=== PATIENT | male | born 1965 | race Caucasian/White ===

== ENCOUNTER 2017-10-18 13:19 | Emergency (ER) | payer OTHER, MEDICAID ==
[~2017-10-18] VITALS: Ht 180.3 cm; Wt 97.2 kg
[~2017-10-18 13:19] MED LIST: CLIN1CAP6 PO; ESZO2 PO; PRAM0.12 PO; PROZ20CA11 PO
[2017-10-18 13:25] VITALS: BP 124/70; PULSE 80; RESP 16; TEMP 97.8; O2SAT 97
--- NOTE | 2017-10-18 14:45 | PD ---
HPI Chief Complaint: Pain: Acute or Chronic Time Seen by Provider: 13:53 Travel History International Travel<30 days: No Contact w/Intl Traveler<30days: No Traveled to known affect area: No History of Present Illness HPI This is a 52-year-old male with right ankle pain, swelling, redness times one day. 5 days ago while shopping the ankle was contused by a shopping cart. No break in the skin that he was aware of. He had only minimal pain at the time of the injury. Last night he developed increasing pain. Today he noticed redness and swelling. He denies fever but reports chills. He has had 14 surgery to the Achilles tendon in this extremity. No history of osteomyelitis. PFSH Past Medical History ADHD: Yes Arthritis: Yes (GOUTY ARTHRITIS) Autoimmune Disease: Yes Anxiety: Yes Cardiovascular Problems: No Cerebrovascular Accident: No Diabetes: Yes (HX OF, STATES NO LONGER DM AFTER HAVING GASTRIC BYPASS) Patient Takes Glucophage: No Diminished Hearing: Yes Endocrine: No Glaucoma: Yes Gout: Yes Genitourinary: No Headaches: Yes Musculoskeletal: Yes Neurologic: Yes (NEUROPATHY/RLS) Respiratory: Yes (SLEEP APNEA) Seizures: No Influenza Vaccination: Yes Past Surgical History Abdominal Surgery: Yes (gastric bypass 2008) Body Medical Devices: GOUT Cholecystectomy: Yes Ear Surgery: Yes (Mastoid, TUBES CHILD) Endocrine Surgery: No Eye Surgery: Yes (R EYE BELVEDEER CAT IMPLANT) Oral Surgery: Yes (TONSILLECTOMY) Tonsillectomy: Yes (AND adenoids) Other Surgery: Yes (GASTRIC BYPASS, SINUS) Social History Alcohol Use: Yes (OCCASIONAL) Tobacco Use: No Substance Use: No Allergies-Medications (Allergen,Severity, Reaction): Coded Allergies: No Known Allergies (Verified Adverse Reaction, Unknown, 10/18/17) Reported Meds & Prescriptions Reported Meds & Active Scripts Active Clindamycin (Clindamycin HCl) 300 Mg Cap 300 Mg PO Q6H 10 Days Clindamycin Hcl (Clindamycin HCl) 300 Mg Cap 300 Mg PO Q6HR 10 Days Reported Pramipexole Dihydrochlori (Pramipexole Dihydrochloride) 0.125 Mg Tab Unknown Dose PO HS Lunesta (Eszopiclone) 2 Mg Tab 2 Mg PO HS Prozac (Fluoxetine HCl) 20 Mg Cap 20 Mg PO DAILY Review of Systems Except as stated in HPI: all other systems reviewed are Neg General / Constitutional: Positive: Chills, No: Fever Physical Exam Narrative GENERAL: Well-nourished, well-developed patient. SKIN: Focused skin assessment warm/dry. HEAD: Normocephalic. EYES: No scleral icterus. No injection or drainage. CARDIOVASCULAR: Regular rate and rhythm without murmurs, gallops, or rubs. RESPIRATORY: Breath sounds equal bilaterally. No accessory muscle use. GASTROINTESTINAL: Abdomen soft, non-tender, nondistended. MUSCULOSKELETAL: No cyanosis. Lower extremity: Notable swelling, erythema, warmth to the lateral aspect of the ankle which extends from the mid foot to the bottom third of the lower extremity. He has a well-healed surgical scar to the posterior aspect of the ankle at the location of the Achilles tendon. 2+ dorsal pedis pulse. Brisk cap refill. Data Data Last Documented VS Vital Signs Date Time Temp Pulse Resp B/P (MAP) Pulse Ox O2 Delivery O2 Flow Rate FiO2 10/18/17 13:25 97.8 80 16 124/70 (88) 97 Orders Orders Basic Metabolic Panel (Bmp) (10/18/17 14:24) Complete Blood Count With Diff (10/18/17 14:24) Blood Culture (10/18/17 14:24) Iv Access Insert/Monitor (10/18/17 14:24) Lactic Acid (10/18/17 14:24) Ankle, Complete ([id number]) (10/18/17 ) Clindamycin Inj (Cleocin Inj) (10/18/17 15:15) Ed Discharge Order (10/18/17 15:49) Labs Laboratory Tests Test 10/18/17 14:40 10/18/17 14:48 Lactic Acid Level 0.9 mmol/L White Blood Count 5.6 TH/MM3 Red Blood Count 4.34 MIL/MM3 Hemoglobin 12.3 GM/DL Hematocrit 38.0 % Mean Corpuscular Volume 87.5 FL Mean Corpuscular Hemoglobin 28.4 PG Mean Corpuscular Hemoglobin Concent 32.4 % Red Cell Distribution Width 12.7 % Platelet Count 184 TH/MM3 Mean Platelet Volume 7.0 FL Neutrophils (%) (Auto) 54.2 % Lymphocytes (%) (Auto) 30.8 % Monocytes (%) (Auto) 11.1 % Eosinophils (%) (Auto) 1.6 % Basophils (%) (Auto) 2.3 % Neutrophils # (Auto) 3.1 TH/MM3 Lymphocytes # (Auto) 1.7 TH/MM3 Monocytes # (Auto) 0.6 TH/MM3 Eosinophils # (Auto) 0.1 TH/MM3 Basophils # (Auto) 0.1 TH/MM3 CBC Comment DIFF FINAL Differential Comment Blood Urea Nitrogen 10 MG/DL Creatinine 0.78 MG/DL Random Glucose 70 MG/DL Calcium Level 8.2 MG/DL Sodium Level 143 MEQ/L Potassium Level 3.8 MEQ/L Chloride Level 112 MEQ/L Carbon Dioxide Level 24.3 MEQ/L Anion Gap 7 MEQ/L Estimat Glomerular Filtration Rate 105 ML/MIN MDM Medical Decision Making Medical Screen Exam Complete: Yes Emergency Medical Condition: Yes Interpretation(s) CBC: Unremarkable. WBC 5.6 BMP: No gross abnormality Lactic: 0.9 X-ray right ankle: No acute findings Differential Diagnosis Abscess, cellulitis, septic arthritis Narrative Course 52 -year-old male with warmth and erythema of the right ankle times one day. The areas is consistent with cellulitis. IV access established, CBC, BMP, lactic acid, blood cultures, x-ray ordered and pending. Patient was given clindamycin 600 mg IV. Labs and x-rays were reviewed. WBC 5.6, lactic acid 0.9 , x-ray no acute abnormalities. Patient's vital signs are stable his lab work is reassuring he will be treated with outpatient oral antibiotics and instructed to follow-up for recheck with his primary doctor. Return precautions were discussed. Patient verbalizes understanding and agrees to plan Diagnosis Primary Impression: Cellulitis Qualified Codes: L03.115 - Cellulitis of right lower limb Referrals: Primary Care Physician Additional Instructions: Take the clindamycin as directed. Take [id number] Motrin or Tylenol as needed for pain. Follow-up the primary doctor on Friday for recheck. Return to emergency department if he developed new or worsening symptoms Scripts Clindamycin (Clindamycin) 300 Mg Cap 300 MG PO Q6H for Infection for 10 Days, #40 CAP 0 Refills Prov: Jolie Henry 10/18/17 Disposition: 01 DISCHARGE HOME Condition: Stable Jolie Henry Oct 18, 2017 14:45
[2017-10-18 14:56] LABS: AUTOMATED NEUTROPHIL # 3.1 TH/MM3 (1.8-7.7); BASOPHIL # 0.1 TH/MM3 (0-0.2); BASOPHIL % 2.3 % (0.0-2.0); EOSINOPHIL # 0.1 TH/MM3 (0-0.4); EOSINOPHIL % 1.6 % (0.0-4.0); HEMO FLAGS DIFF FINAL; LYMPH % 30.8 % (9.0-44.0); LYMPHOCYTE # 1.7 TH/MM3 (1.0-4.8); MEAN CELL VOLUME 87.5 FL (80.0-100.0); MEAN CORPUSCULAR HEMOGLOBIN 28.4 PG (27.0-34.0); MEAN CORPUSCULAR HGB CONC 32.4 % (32.0-36.0); MONO % 11.1 % (0.0-8.0); NEUT % 54.2 % (16.0-70.0); PLATELET COUNT 184 TH/MM3 (150-450); RED BLOOD COUNT 4.34 MIL/MM3 (4.50-5.90); RED CELL DISTRIBUTION WIDTH 12.7 % (11.6-17.2); WHITE BLOOD COUNT 5.6 TH/MM3 (4.0-11.0)
[2017-10-18 15:06] LABS: POTASSIUM 3.8 MEQ/L (3.5-5.1)
[2017-10-18 15:10] LABS: BICARBONATE 24.3 MEQ/L (21.0-32.0)
[2017-10-18] MEDS ORDERED: CLINDAMYCIN INJ 600 MG in SODIUM CHLORIDE 0.9% INJ 100 ML IV ONE (15:15)
--- NOTE | 2017-10-18 15:19 | RADRPT ---
EXAM DATE/TIME: 10/18/2017 15:03 [facility] COMPARISON: FOOT RIGHT COMPLETE ([id number]), July 18, 2014, 11:08. INDICATIONS : Right ankle pain. Fall. MEDICAL HISTORY : None. SURGICAL HISTORY : None. Foot and ankle for clubfeet. ENCOUNTER: Initial ACUITY: 3 days PAIN SCORE: 6/10 LOCATION: Right lateral FINDINGS: Three-view examination of the ankle demonstrates advanced arthropathy involving the mid foot and hind foot, similar in appearance to prior examination in 2013 and having features characteristic of diabet ic neuropathy. There is severe osteopenia of the talus; the cortical margins of the talus are mainta ined the oblique view. Unfused plantar ossification near the calcaneus is stable in size. Multiple hemoclips in the soft tissues of the posterior leg. CONCLUSION: No acute findings. Advanced midfoot and hindfoot arthropathy probably related to diabetic neuropathy , stable in severity when compared to 2013. Karl Serna MD on October 18, 2017 at 15:15 Board Certified Radiologist. This report was verified electronically.
[2017-10-18] MEDS ORDERED: CLIN300C5 PO (15:49)
== END 2017-10-18 16:40 | disposition home or self-care (01) ==
LOC: PHEFT 13:19 → PHED 16:40
DX: L03.115 Cellulitis of right lower limb (principal); M10.9 Gout, unspecified; W22.8XXA Striking against or struck by other objects, initial encounter; Y92.512 Supermarket, store or market as the place of occurrence of the external cause
CPT/HCPCS: 73610; 80048; 83605; 85025; 87040; 96365

== ENCOUNTER 2017-12-02 09:48 | Emergency (ER) | payer OTHER, MEDICAID ==
[~2017-12-02] VITALS: Ht 180.3 cm; Wt 96.4 kg
[~2017-12-02 09:48] MED LIST changes: +CLIN300C5 PO
[2017-12-02 09:54] VITALS: BP 120/59; PULSE 66; RESP 16; TEMP 98; O2SAT 98
[2017-12-02] MEDS ORDERED: TEMA7.5C PO (10:07)
[2017-12-02] MEDS ORDERED: ANXIETY MED (10:07)
--- NOTE | 2017-12-02 10:27 | PD ---
HPI Chief Complaint: Musculoskeletal Complaint Time Seen by Provider: 10:17 Travel History International Travel<30 days: No Contact w/Intl Traveler<30days: No Traveled to known affect area: No History of Present Illness HPI Patient comes in complaining of throbbing pain in his left knee that began yesterday. Patient is uncertain if it may be his gout or cellulitis. Patient has been taking his indomethacin last dose yesterday with little to no improvement of symptoms. Pain is worse with walking and certain movement. Patient denies any trauma, fevers, numbness or tingling, or radiation of the pain. PFSH Past Medical History ADHD: Yes Arthritis: Yes (GOUTY ARTHRITIS) Autoimmune Disease: Yes Anxiety: Yes Cardiovascular Problems: No Cerebrovascular Accident: No Diabetes: Yes (HX OF, STATES NO LONGER DM AFTER HAVING GASTRIC BYPASS) Patient Takes Glucophage: No Diminished Hearing: Yes Endocrine: No Glaucoma: Yes Gout: Yes Genitourinary: No Headaches: Yes Musculoskeletal: Yes Neurologic: Yes (NEUROPATHY/RLS) Respiratory: Yes (SLEEP APNEA) Seizures: No Past Surgical History Abdominal Surgery: Yes (gastric bypass 2008) Body Medical Devices: GOUT Cholecystectomy: Yes Ear Surgery: Yes (Mastoid, TUBES CHILD) Endocrine Surgery: No Eye Surgery: Yes (R EYE BELVEDEER CAT IMPLANT) Oral Surgery: Yes (TONSILLECTOMY) Tonsillectomy: Yes (AND adenoids) Other Surgery: Yes (GASTRIC BYPASS, SINUS) Social History Alcohol Use: Yes (OCCASIONAL) Tobacco Use: No Substance Use: No Allergies-Medications (Allergen,Severity, Reaction): Coded Allergies: No Known Allergies (Verified Adverse Reaction, Unknown, 12/02/17) Reported Meds & Prescriptions Reported Meds & Active Scripts Active Clindamycin (Clindamycin HCl) 300 Mg Cap 300 Mg PO Q6H 10 Days Reported [Anxiety Med] Temazepam 7.5 Mg Cap 10 Mg PO HS PRN Review of Systems Except as stated in HPI: all other systems reviewed are Neg Physical Exam Narrative GENERAL: Well-developed, overly nourished, in no acute distress, and non-ill appearing. SKIN: Focused skin assessment warm and dry. No erythematous, induration, fluctuation, or crepitus. HEAD: Atraumatic. Normocephalic. EYES: Pupils equal and round. EOMI. No scleral icterus. No injection or drainage. ENT: No nasal bleeding or discharge. Mucous membranes pink and moist. NECK: Trachea midline. Supple. No nuclear rigidity. CARDIOVASCULAR: Dorsal pulses 2+, intact, and equal bilaterally. Capillary refill less than 2 seconds. RESPIRATORY: No accessory muscle use. No respiratory distress. MUSCULOSKELETAL: No obvious deformities. No clubbing. No cyanosis. No edema. Full range of motion. Knee: Negative patellar apprehension, varus and valgus maneuvers, anterior draw test, and Markell test. Pulses equal BL distal to injury. Capillary refill less than 2 seconds distal to injury and equal BL. FROM distal to injury and equal BL. Strength distal to injury equal BL. NV intact distal to injury. Dorsal pulses equal BL. Sensation equal BL 1st web space. Negative Homans sign. There is no crepitus, fluctuation, induration, erythematous, or signs of infectious process. It is afebrile NEUROLOGICAL: Awake and alert. No obvious cranial nerve deficits. Motor grossly within normal limits. Normal speech. PSYCHIATRIC: Appropriate mood and affect; insight and judgment normal. Data Data Last Documented VS Vital Signs Date Time Temp Pulse Resp B/P (MAP) Pulse Ox O2 Delivery O2 Flow Rate FiO2 12/02/17 09:54 98.0 66 16 120/59 (79) 98 Orders Orders Ketorolac Inj (Toradol Inj) (12/02/17 10:30) Knee, Complete (4vws) (12/02/17 ) Ice/Cold Pack (12/02/17 10:24) Ed Discharge Order (12/02/17 11:20) Splint Or Brace Apply/Monitor (12/02/17 11:20) [facility] Medical Decision Making Medical Screen Exam Complete: Yes Emergency Medical Condition: Yes Interpretation(s) Last Impressions Knee X-Ray 12/02/17 0000 Signed Impressions: Service Date/Time: Saturday, December 02, 2017 10:42 - CONCLUSION: 1. Mild 3 compartment degenerative change most characteristic of osteoarthritis versus calcium pyrophosphate deposition disorder. 2. Mild osteopenia. Tyler White MD Differential Diagnosis Fracture, sprain, gout, osteoarthritis, meniscus tear, pseudogout, septic joint Narrative Course There is no clinical evidence for fracture. There is no clinical evidence to suspect bony injury or infectious process by exam. Radiographic examination revealed no fracture seen at this time. No obvious ligamental injury or internal derangement is noted at this time. The distal extremity appears neurovascularly intact, without evidence of neurovascular injury nor compartment syndrome. Tendon exam also was intact. The effected limb was splinted. The patient was discharged and given warnings for vascular compromise. The patient is to follow up with Orthopedics. The patient agrees with plan. Patient in no obvious distress upon re-evaluation. All pertinent Radiology result(s) discussed with patient/family. Any questions/concerns in reference to patient diagnosis/condition discussed and clarified prior to patient's discharge. Reinforced sheer importance of close follow up with patient's primary physician or primary care clinic. Instructed patient to return to ED immediately, if symptoms return/worsen. Patient showed understanding of above instructions. Further instructions and recommendations were detailed in discharge paperwork. Patient ambulated without difficulty out of ED at discharge. Diagnosis Primary Impression: Left knee pain Qualified Codes: M25.562 - Pain in left knee Additional Impressions: Osteoarthritis Qualified Codes: M17.12 - Unilateral primary osteoarthritis, left knee Osteopenia Qualified Codes: M85.80 - Other specified disorders of bone density and structure, unspecified site Referrals: Elroy Simpson MD Patient Instructions: General Instructions, Knee Pain (ED), Osteoarthritis (DC) , Osteopenia (GEN) Additional Instructions: Follow-up with your primary care physician and/or orthopedics this week for reevaluation. Take your indomethacin as prescribed for pain control. Wear Yosvany wrap as needed for comfort. Return to the emergency department if symptoms get worse. Disposition: 01 DISCHARGE HOME Condition: Stable Vijay Cota Dec 02, 2017 10:27
[2017-12-02] MEDS ORDERED: KETOROLAC TROMETHAMINE 60 MG/2 ML (IM) VIAL IM ONE (10:30)
--- NOTE | 2017-12-02 11:11 | RADRPT ---
EXAM DATE/TIME: 12/02/2017 10:42 [facility] COMPARISON: No previous studies available for comparison. INDICATIONS : Left knee pain, no known injury. MEDICAL HISTORY : gout SURGICAL HISTORY : None. ENCOUNTER: Initial ACUITY: 2 days PAIN SCORE: 10/10 LOCATION: Left posterior knee FINDINGS: A standard 4 view examination of the left knee was obtained and demonstrates mild osteopenia and norm al alignment. Chondrocalcinosis is noted in the medial and lateral compartments with mild joint space loss and spurring. There are mild degenerative changes in the patellofemoral joint as well with scle rosis and mild spurring. There is no distinct joint effusion. No focal soft tissue abnormalities iden tified. CONCLUSION: 1. Mild 3 compartment degenerative change most characteristic of osteoarthritis versus calcium pyroph osphate deposition disorder. 2. Mild osteopenia. Tyler White MD on December 02, 2017 at 11:07 Board Certified Radiologist. This report was verified electronically.
== END 2017-12-02 11:27 | disposition home or self-care (01) ==
LOC: PHEFT 09:48
DX: M25.562 Pain in left knee (principal); M17.12 Unilateral primary osteoarthritis, left knee; M85.80 Other specified disorders of bone density and structure, unspecified site; F41.9 Anxiety disorder, unspecified; G47.30 Sleep apnea, unspecified; Z87.39 Personal history of other diseases of the musculoskeletal system and connective tissue; Z86.39 Personal history of other endocrine, nutritional and metabolic disease; Z86.59 Personal history of other mental and behavioral disorders
CPT/HCPCS: 73564; 96372; 99284; J1885

== ENCOUNTER 2018-01-14 03:35 | Emergency (ER) | payer OTHER, MEDICAID ==
[~2018-01-14] VITALS: Ht 180.3 cm; Wt 98.7 kg
[~2018-01-14 03:35] MED LIST changes: +ANXIETY MED; -CLIN1CAP6 PO; -ESZO2 PO; -PRAM0.12 PO; -PROZ20CA11 PO; +TEMA7.5C PO
[2018-01-14 03:43] VITALS: BP 132/79; PULSE 98; RESP 20; TEMP 97.9; O2SAT 98
[2018-01-14] MEDS ORDERED: BUSP10TA PO (03:52)
[2018-01-14] MEDS ORDERED: INDO50CA PO ×2 (03:52→04:01)
[2018-01-14] MEDS ORDERED: DEXAMETHASONE SOD PHOS 4 MG/ML VIAL IM ONE (04:00)
[2018-01-14] MEDS ORDERED: NORC5TAB PO (04:01)
--- NOTE | 2018-01-14 04:01 | PD ---
HPI Chief Complaint: Edema Time Seen by Provider: 03:51 Travel History International Travel<30 days: No Contact w/Intl Traveler<30days: No Traveled to known affect area: No History of Present Illness HPI The patient is a 52-year-old male who presents emergency department for inflammation the left elbow. The patient notes that his left elbow has been somewhat erythematous and swollen last several days. The patient has a history of similar symptoms in the past secondary to gout. He has had fluid drawn from his joints in the past which are positive for crystals. The patient states Indocin works well, also requests a shot of Decadron IM to start his relief. 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 He is scheduled undergo surgery by his plastic surgeon in [place], [place], Dr. Mckeon. The patient denies any fever. He does state the area is tender to palpation. He denies any trauma to the affected area. Symptoms are moderate. PFSH Past Medical History ADHD: Yes Arthritis: Yes (GOUTY ARTHRITIS) Autoimmune Disease: Yes Anxiety: Yes Cardiovascular Problems: No Cerebrovascular Accident: No Diabetes: Yes (HX OF, STATES NO LONGER DM AFTER HAVING GASTRIC BYPASS) Diminished Hearing: Yes Endocrine: No Glaucoma: Yes Gout: Yes Genitourinary: No Headaches: Yes Musculoskeletal: Yes Neurologic: Yes (NEUROPATHY/RLS) Respiratory: Yes (SLEEP APNEA) Seizures: No Past Surgical History Abdominal Surgery: Yes (gastric bypass 2008) Body Medical Devices: GOUT Cholecystectomy: Yes Ear Surgery: Yes (Mastoid, TUBES CHILD) Endocrine Surgery: No Eye Surgery: Yes (R EYE BELVEDEER CAT IMPLANT) Oral Surgery: Yes (TONSILLECTOMY) Tonsillectomy: Yes (AND adenoids) Other Surgery: Yes (GASTRIC BYPASS, SINUS) Social History Alcohol Use: Yes (OCCASIONAL) Tobacco Use: No Substance Use: No Allergies-Medications (Allergen,Severity, Reaction): Coded Allergies: No Known Allergies (Verified Adverse Reaction, Unknown, 01/14/18) Reported Meds & Prescriptions Reported Meds & Active Scripts Active Reported Indomethacin 50 Mg Cap 50 Mg PO TID Take with food, milk, or antacids to decrease stomach adverse effects. Buspirone (Buspirone HCl) 10 Mg Tab 10 Mg PO DAILY Temazepam 7.5 Mg Cap 10 Mg PO HS PRN Review of Systems Except as stated in HPI: all other systems reviewed are Neg General / Constitutional: No: Fever Musculoskeletal: Positive: Edema, Pain Skin: Positive Other (as noted in history present illness) Neurologic: Positive: Paresthesia (numbness and tingling to the fourth and fifth digit of the left upper extremity secondary to lipoma overriding the nerve ) Physical Exam Narrative GENERAL: Awake, alert, pleasant 52-year-old male who appears his stated age and is in no acute respiratory distress. SKIN: Focused skin assessment warm/dry. HEAD: Atraumatic. Normocephalic. EYES: No injection or drainage. MUSCULOSKELETAL: The left elbow is erythematous, edematous, tender palpation of the extensor surface. He has a lipoma just proximal to the left elbow over the medial aspect. He has limited range of motion with flexion extension left elbow secondary to pain secondary to the lipoma per his report. Intrinsic hand muscles are intact. Positive left radial pulse. NEUROLOGICAL: Awake and alert. No obvious cranial nerve deficits. Motor grossly within normal limits. Normal speech. PSYCHIATRIC: Appropriate mood and affect; insight and judgment normal. Data Data Last Documented VS Vital Signs Date Time Temp Pulse Resp B/P (MAP) Pulse Ox O2 Delivery O2 Flow Rate FiO2 01/14/18 03:43 97.9 98 20 132/79 (96) 98 Orders Orders Dexamethasone Inj (Decadron Inj) (01/14/18 04:00) MDM Medical Decision Making Medical Screen Exam Complete: Yes Emergency Medical Condition: Yes Medical Record Reviewed: Yes Differential Diagnosis Differential diagnosis includes gout, pseudogout, arthropathy, septic joint, abscess, bursitis. Narrative Course The patient has a history of gouty arthropathy. I reviewed the EMR, he has previous arthrocentesis which is positive for crystals. The patient does have a history of gastric bypass, however, states he's had a distended and steroids in the past without difficulty. He is requesting a steroid injection, therefore , the patient was administered Decadron 8 mg IM[address] I will place patient on Indocin 3 times a day for 5 days and pain medications. He is advised to follow- up with his primary physician. Return if symptoms worsen or progress. Diagnosis Primary Impression: Acute gouty arthropathy Patient Instructions: General Instructions Additional Instructions: Medications as directed. Follow-up with your primary physician. Return if symptoms worsen or progress. Med/Other Pt SpecificInfo: Prescription(s) given Scripts Hydrocodone-Acetaminophen (Beyer) 5 Mg-325 Mg Tab 1 TAB PO Q6H Y for PAIN, #12 TAB 0 Refills Prov: Michael Verde MD 01/14/18 Indomethacin (Indomethacin) 50 Mg Cap 50 MG PO TID for 5 Days, CAP 0 Refills Take with food, milk, or antacids to decrease stomach adverse effects. Prov: Michael Verde MD 01/14/18 Disposition: 01 DISCHARGE HOME Condition: Stable Michael Verde MD Jan 14, 2018 04:01
== END 2018-01-14 04:35 | disposition home or self-care (01) ==
LOC: PHED 03:35
DX: M10.9 Gout, unspecified (principal); Z98.84 Bariatric surgery status
CPT/HCPCS: 96372; 99283; J1100